=== PATIENT | female | born 1940 | race Caucasian/White ===

== ENCOUNTER 2017-01-10 23:56 | Inpatient (IN) ==
[2017-01-11] MEDS ORDERED: SOLU-MEDROL IV ONE (00:11)
[2017-01-11] MEDS ORDERED: DUONEB (A & A) INH ONE (00:11)
[2017-01-11 00:47] LABS: ALLEN TEST YES; BE 2.4 mmoll (-3.0-3.0); BLOOD TYPE ARTERIAL; DRAW SITE R RADIAL; METHB 1.6 % (0.0-1.5); MODALITY CANNULA; O2(CT) 18.7 mL/dL (15.0-23.0); PCO2(98.6) 38 mmHg (35-45); PO2(98.6) 96 mmHg (60-100); SAMPLE BLOOD; SAO2 99.3 % (95.0-100.0); THB 13.8 g/dL (11.5-17.4); pH(98.6) 7.45 (7.35-7.45)
[2017-01-11 00:58] LABS: MANUAL DIFF NEEDED? NO
[2017-01-11 01:04] LABS: BASO% 0.1 % (0.0-0.8); EOS# 0.12 X1000 (0.0-0.7); EOS% 1.2 % (0.0-10.0); HEMATOCRIT 40.7 % (37.0-47.0); HEMOGLOBIN 13.6 g/dL (12.0-16.0); IMM GRAN# 0.02 X1000 (0.0-0.04); IMM GRAN% 0.2 % (0.0-0.5); LYMPH# 1.58 X1000 (1.2-3.4); LYMPH% 15.5 % (20.5-51.1); MCH 32.2 PG (27-31); MCHC 33.4 g/dL (33-37); MCV 96.2 FL (81-99); MONO# 1.15 X1000 (0.11-0.59); MONO% 11.3 % (1.7-9.3); MPV 11.3 FL (7.4-10.4); NEUT% 71.7 % (42.2-75.2); PLT 178 X1000 (130-400); RBC 4.23 XMIL (4.2-5.4)
[2017-01-11 01:16] LABS: AGAP 15; ALKALINE PHOSPHATASE 32 U/L (32-104); BUN 10 mg/dL (8-22); CALCIUM 9.5 mg/dL (8.8-10.2); CHLORIDE 90 mmol/L (98-107); CK PROFILE 142 U/L (24-173); COSMO 265; GOT 21 U/L (10-30); GPT 16 U/L (10-36); POTASSIUM 4.2 mmol/L (3.5-5.1); SODIUM 132 mmol/L (136-145); TCO2 27 mmol/L (25-35); TOTAL BILIRUBIN 0.83 mg/dL (0.20-1.00); TOTAL PROTEIN 7.3 g/dL (6.3-8.3)
--- NOTE | 2017-01-11 01:23 | PROVIDER DOCUMENTATION ---
HPI-General Adult - General Chief Complaint: Shortness of Breath Stated Complaint: sob Time Seen by Provider: 01/11/17 01:19 Source: patient, EMS Allergies/Adverse Reactions: Patient Allergies Allergy/AdvReac Type Severity Reaction Status Date / Time acetaminophen [From [place]] AdvReac NAUSEA Verified 01/11/17 00:53 clarithromycin [From Biaxin] AdvReac NAUSEA Verified 01/11/17 00:53 hydrocodone bitartrate * AdvReac NAUSEA Verified 01/11/17 00:53 [From [place]] sertraline HCl * AdvReac NAUSEA Verified 01/11/17 00:53 [From Zoloft] Home Medications: Home Medication List Medication Instructions Recorded Confirmed Last Taken Type Alendronate Sodium 70 mg PO DIRECTED 01/11/17 01/11/17 Unknown History Calcium 500 mg PO DAILY 01/11/17 01/11/17 01/10/17 History CefUROXIME [Ceftin] 250 mg PO Q12HR 01/11/17 01/11/17 01/10/17 History Glycopyrrolate/Formoterol Fum 10.7 gm IH DAILY 01/11/17 01/11/17 01/10/17 History [Bevespi Aerosphere Inhaler] Multivitamin [Multivitamins] 1 each PO DAILY 01/11/17 01/11/17 01/11/17 History Trazodone HCl 50 mg PO HS 01/11/17 01/11/17 01/10/17 History - History of Present Illness -Gen Adult Nature of Presenting Problems: Pt. is 76 yof that presents with c/o SOB. Pt. reports she saw her PCP (Dr. Grace ) today and he changed her medication. Pt. reports later in the day she began to get SOB and states she couldn't catch her breath and began to feel hot. Pt. denies any pain or other symptoms. Location of Pain/Injury: reports: none. denies: head, face, mouth, neck, chest , upper extremity, hand(s), abdomen, back, pelvis, genitalia, lower extremity, feet, upper body, lower body, generalized Pain Radiation: reports: no radiation Quality of Pain: reports: none. denies: aching, burning, cramping, dull, fullness, indigestion, pressure, sharp, stabbing, tearing, throbbing, tightness Severity: denies: mild, moderate, severe Onset/Duration: reports: abrupt, 4-6 hours ago Timing: reports: still present. denies: improving, gone now, resolved prior to arrival, intermittent, constant, changing over time, getting worse Context/Activities at Onset: reports: none. denies: recent emotional stress, recent physical stress, recent trauma history, possible bad food, cold exposure , out of country travel Modifying Factors: improves with: nothing Associated Symptoms: reports: shortness of breath. denies: anxiety, arm pain, back/neck pain, chest pain, constipation, cough, diaphoresis, diarrhea, dizziness, EENT symptoms, fatigue, fever/chills, genitourinary problems, headaches, heartburn, joint pain, loss of appetite, malaise, muscle aches, sinus congestion/drainage, nausea, rash, seizure, sensory/motor loss, pain with inspiration, swelling/mass in abdomen, syncope, vomiting, weakness, trouble walking Similar Symptoms Previously?: No Recently seen or treated by another doctor?: No Review of Systems - Adult - REVIEW OF SYSTEMS - ADULT Constitutional: reports: see HPI. denies: chills, fever, fatique Eyes: reports: see HPI. denies: discharge, blurred vision, double vision Ears, Nose, Mouth & Throat: reports: see HPI. denies: ear discharge, ear pain, hearing loss, sinus problem, nose pain, loose teeth, mouth/dental pain, throat pain, throat swelling Cardiovascular: reports: see HPI. denies: chest pain, irregular heart rate, palpitations, syncope Respiratory: reports: see HPI, dyspnea on exertion, shortness of breath. denies : chronic cough, cough, pleurisy, wheezing Gastrointestinal: reports: see HPI. denies: abdominal pain, hematemesis, diarrhea, nausea, vomiting Genitourinary: reports: see HPI. denies: dysuria, discharge, flank pain, hesitency, urgency Musculoskeletal: reports: see HPI. denies: bone pain, back pain, joint pain, muscle aches, neck pain Integumentary: reports: see HPI. denies: hives, hair loss, itching, rash, skin thickening Neurological: reports: see HPI. denies: ataxia, headache/migraines, numbness, seizure, tremors Psychiatric: reports: see HPI. denies: anxiety, depression, emotional problems , insomnia, panic attacks, suicidal thoughts Past History - Adult - PAST MEDICAL HISTORY-ADULT Review of Records: reports: Old Records Reviewed, Nursing Assessment Review, Medications Reviewed, Social history reviewed & non-contributory. - IMMUNIZATION STATUS Childhood Immunizations: See Nurse Assessment Flu Vaccine: See Nurse Assessment - FAMILY HISTORY Family History: reviewed, not pertinent - SOCIAL HISTORY Smoking: non-smoker Physical Exam-General - PHYSICAL EXAM-ADULT Initial Vital Signs Reviewed: Yes - CONSTITUTIONAL General Appearance: alert, moderate distress, thin. negative: obese, anxious, lethargic, slow to respond, obtunded, combative - EYES Eyes: PERRL/EOMI, pink conjunctivae. negative: conjuctival exudate, scleral icterus, subconjunctival hemorrhage - HEAD, EARS, NOSE, MOUTH & THROAT HENMT: normocephalic/atraumatic, moist mucous membranes. negative: angioedema, frontal tenderness, maxillary tenderness - NECK Neck: non-tender, full range of motion, supple, normal inspection. negative: lymphadenopathy, trachial deviation, thyromegaly - RESPIRATORY Respiratory: respiratory distress, decreased breath sounds, accessory muscle use , increased rate. negative: crackles, rales, rhonchi, stridor, wheezing, plerual rub, retractions, splinting - CARDIOVASCULAR Cardiovascular: regular rate, rhythm, no edema, no JVD, no murmur, tachycardia. negative: extra beats, friction rub, irregularly irregular - GASTROINTESTINAL (ABDOMEN) Abdominal Exam: normal bowel sounds, non tender, soft. negative: distended, guarding, rigid, rebound, tenderness, hernia, mass - LYMPHATIC Lymphatic: no adenopathy. negative: axilla node tender, cervical node tenderness - MUSCULOSKELETAL Back Exam: normal inspection, no CVA tenderness, no vertebral tenderness. negative: ecchymosis, swelling, vertebral tenderness Extremity: normal range of motion, non-tender, normal inspection. negative: deformity, erythema, inflammation, swelling, tenderness Peripheral Pulses: radial (R): 2+, radial (L): 2+ - SKIN Integumentary: normal color, normal turgor, warm/dry. negative: cyanosis, diaphoresis, ecchymosis, erythema, jaundice, mottled, pallor, petechiae, purpura , rash, swelling, tenderness - NEUROLOGIC Neurologic: grossly normal, no motor/sensory deficits. negative: aphasia, facial droop, focal weakness, motor weakness, sensory deficit - PSYCHIATRIC Psych/Mental Status: normal mood/affect, normal thought content, normal thought process, oriented x 3, anxious. negative: paranoid, tearful Progress - PLAN OF CARE/RESULTS Progress/Plan/Lab Results: Vital Signs - 8 hr 01/10/17 23:58 Temperature 97.5 F L Pulse Rate 98 H Respiratory Rate 24 Blood Pressure 147/99 O2 Sat by Pulse Oximetry 98 Laboratory Results - last 24 hr 01/11/17 01/11/17 01/11/17 00:28 00:28 00:28 WBC 10.19 RBC 4.23 Hgb 13.6 Hct 40.7 MCV 96.2 MCH 32.2 H MCHC 33.4 RDW Std Deviation 13.8 Plt Count 178 MPV 11.3 H Immature Gran % (Auto) 0.2 Neut % (Auto) 71.7 Lymph % (Auto) 15.5 L Owen % (Auto) 11.3 H Eos % (Auto) 1.2 Baso % (Auto) 0.1 Immature Gran # (Auto) 0.02 Neut # (Auto) 7.31 H Lymph # (Auto) 1.58 Owen # (Auto) 1.15 H Eos # (Auto) 0.12 Baso # (Auto) 0.01 D-Dimer 0.19 Specimen Type Sample Site pH pCO2 pO2 HCO3 Base Excess Oxyhemoglobin ABG O2 Sat (Calculated) ABG O2 Saturation ABG Carboxyhemoglobin ABG Methemoglobin Dwayne Test A-a O2 Difference Total Hemoglobin Lactate Liter Flow Blood Gas Modality FiO2 % Sodium 132 L Potassium 4.2 Chloride 90 L Carbon Dioxide 27 Anion Gap 15 BUN 10 Creatinine 0.8 Estimated GFR/1.73 m2 > 60 BUN/Creatinine Ratio 13 Glucose 131 H Calculated Osmolality 265 Calcium 9.5 Total Bilirubin 0.83 AST 21 ALT 16 Alkaline Phosphatase 32 Creatine Kinase 142 Troponin T Total Protein 7.3 Albumin 4.0 Globulin 3.3 Albumin/Globulin Ratio 1.2 01/11/17 01/11/17 00:28 00:37 WBC RBC Hgb Hct MCV MCH MCHC RDW Std Deviation Plt Count MPV Immature Gran % (Auto) Neut % (Auto) Lymph % (Auto) Owen % (Auto) Eos % (Auto) Baso % (Auto) Immature Gran # (Auto) Neut # (Auto) Lymph # (Auto) Owen # (Auto) Eos # (Auto) Baso # (Auto) D-Dimer Specimen Type ARTERIAL Sample Site R RADIAL pH 7.45 pCO2 38 pO2 96 HCO3 26.8 H Base Excess 2.4 Oxyhemoglobin 95.9 ABG O2 Sat (Calculated) 18.7 ABG O2 Saturation 99.3 ABG Carboxyhemoglobin 1.80 ABG Methemoglobin 1.6 H Dwayne Test YES A-a O2 Difference 85.0 Total Hemoglobin 13.8 Lactate 0.80 Liter Flow 3.0 Blood Gas Modality CANNULA FiO2 % 32.0 Sodium Potassium Chloride Carbon Dioxide Anion Gap BUN Creatinine Estimated GFR/1.73 m2 BUN/Creatinine Ratio Glucose Calculated Osmolality Calcium Total Bilirubin AST ALT Alkaline Phosphatase Creatine Kinase Troponin T < 0.010 Total Protein Albumin Globulin Albumin/Globulin Ratio Orders Category Date Time Status Saline Loc NOW Care 01/11/17 00:12 Active CHEST-2 VIEWS [RAD] Stat Exams 01/11/17 00:11 Taken ABG [RESP] Routine Lab 01/11/17 00:37 Completed CBC WITH ELECTRONIC DIFF [HEME] Stat Lab 01/11/17 00:28 Completed CK PROFILE [SP CHEM] Stat Lab 01/11/17 00:28 Completed COMPREHENSIVE METABOLIC PANEL [CHEM] Stat Lab 01/11/17 00:28 Completed D-DIMER [CHEM] Stat Lab 01/11/17 00:28 Completed TROPONIN T Stat Lab 01/11/17 00:28 Completed Albuterol 2.5MG/Ipratrop 0.5MG [Duoneb (A & A)] Med 01/11/17 00:11 Discontinued 6 ml INH NOW ONE Methylprednisolone Sod Succ [Solu-Medrol] Med 01/11/17 00:11 Discontinued 125 mg IV NOW ONE Aerosol Treatments Routine Oth 01/11/17 00:11 Active Aerosol Treatments Stat Oth 01/11/17 00:11 Active EKG [EKG] Stat Ther 01/11/17 00:12 Ordered Discussed results and plan of care with Dr. Forman and he agrees with plan Discussed results and plan of care with patient. Patient agrees with plan and verbalizes understanding. Result Diagrams: 01/11/17 00:28 01/11/17 00:28 - XRAY 1 XRAY Study: Chest XRAY Interpretation: COPD ([place]) - CONSULTS/PCP/HOSPITALIST Notification #1 *Consult/PCP/Hospitalist*: Dr. Hyman Time Discussed: 01:51 Reason/Comments: Admission Consult Disposition: Will see in ED, Admit Departure - Departure Time of Disposition Decision: 01:42 DIAGNOSIS: COPD exacerbation Disposition: ADMITTED INPATIENT 09 Certified Medical Emergency: Emergent Condition: Stable Referrals and Follow-Ups: Angel Grace MD [Primary Care Provider] - Attestation - Physician/ CARMEN Attestation Patient care was provided by Advanced Practice Provider:: Yes Advanced Practice Provider:: Edyta Rice Advanced Practice Provider documentation review:: The Mid-level provider documentation, treatment plan and medical decision making was reviewed by the physician who agrees with all treatment and medical decision making by the MLP.
[2017-01-11] MEDS ORDERED: NS 1,000 ML IV ONE (01:44)
--- NOTE | 2017-01-11 02:30 | ED EKG INTERP ---
This chart was entered by Patricio Vogel Scribe, acting as scribe for J Carlos Forman MD. EKG Interpretation - EKG Time of EKG reading by physician:: 01:23 EKG Read and Signed by:: J Carlos Forman EKG Interpretation (*Must complete 3 of following elements*): Abnormal ( Possible L atrial enlargement; Septal infarct, age undetermined) Rate: 104 Rhythm: Sinus tachycardia This chart was documented by the indicated scribe, (Patricio Vogel Scribe) and accurately reflects the services I performed and decisions made by me, J Carlos Forman MD, as attested by the provider's signature.
[2017-01-11] MEDS ORDERED: NS NEB INH SCH (03:00)
[2017-01-11] MEDS: ROCEPHIN 1 GM/NS 1 GM/50 ML IVPB IV SCH (03:54)
[2017-01-11] MEDS: LOVENOX SUBQ SCH (03:55)
[2017-01-11] MEDS: AYR NASAL DROPS NAS SCH ×7 (04:15→21:02)
--- NOTE | 2017-01-11 06:01 | HISTORY AND PHYSICAL ---
PRIMARY CARE PHYSICIAN: Angel Grace MD REASON FOR ADMISSION: Sudden shortness of breath 8 hours ago. HISTORY OF PRESENT ILLNESS: Ms. Ellis Alatorre is a 76-year-old lady with past medical history of osteoporosis, COPD/emphysema, seasonal allergic rhinitis and chronic sinusitis. She says that about 4 weeks ago, she developed a oculonasal pruritus and sneezing spells, which is not unusual for her during springtime. Since then, she has gone on to develop nasal congestion and what she describes as sinusitis for which she has been treated with Amoxil, cefuroxime x 2 rounds, currently on her 2nd round. She denies any fever or chills. No upper dental pain. No epistaxis. Patient came today because while sitting down, she developed sudden shortness of breath. Could not take a deep inspiratory effort and then called EMS. According to EMS, when they got there, her O2 saturation was in the 70s and she was put on 100% Ventimask, brought into the ER, given steroids and breathing treatments and taken off the Ventimask and put on 2 L of nasal cannula. Her O2 saturation was 88%. The patient denies any chest pain or anginal-type symptoms. She denies any lower extremity swelling. No antecedent history of orthopnea, abdominal distention, PND. No postnasal drip. No heartburn. REVIEW OF SYSTEMS: Twelve system review was done but positive findings are noted in the HPI as per above. ALLERGIES: [place], Zoloft, codeine, Biaxin. SURGICAL HISTORY: She has had bilateral lens implants, tonsillectomy. FAMILY HISTORY: Notable for seasonal allergic rhinitis, but no asthma. No heart disease. No diabetes. SOCIAL HISTORY: She stopped smoking 8 years ago. No alcohol or illicit drug use. LAB WORK/DIAGNOSTIC DATA: Chest x-ray is clear but she has hyperinflated lungs. EKG showed questionable septal Q-waves with a lot of artifact and normal sinus rhythm. White count 7000, hemoglobin 13 and hematocrit 40, platelets 178,000 with normal differential. Sodium 132, glucose 130, troponins negative. Blood gas 7.45, pCO2 38, PO2 96 on 4 L. PHYSICAL EXAMINATION: VITAL SIGNS: Blood pressure 147/99, heart rate 95, respirations 16, temperature is 98.5 degrees. GENERAL: She is an elderly, thin woman who is in very mild respiratory distress. She is A and O x3 with normal mood and affect. HEENT: Head is normocephalic, atraumatic. Eyes, MARIALUISA EOMI. She is anicteric and not pale. ENT and oropharyngeal exam is grossly normal. No central cyanosis is noted. NECK: Supple. No JVD or carotid bruit. No thyromegaly. CHEST: Significantly decreased entry with very few wheezes. CARDIOVASCULAR: First and second heart sounds heard. No gallops, murmurs, rubs. Rhythm is regular. ABDOMEN: Slightly protuberant, soft, nontender. No mass or organomegaly. Bowel sounds normal. RECTAL: Exam is deferred at this time. EXTREMITIES: No edema, clubbing or peripheral cyanosis. She has slight fine tremors. Pulses distally in all extremities are palpable with good volume and symmetric. NEUROLOGICAL: No focal deficits. SKIN: Intact with no breakdown, lesions or erythema. MUSCULOSKELETAL: Exam is grossly normal. ASSESSMENT: 1. Acute respiratory failure secondary to chronic obstructive pulmonary disease exacerbation. 2. Chronic obstructive pulmonary disease exacerbation. 3. Seasonal allergic rhinitis. 4. Osteoporosis. 5. Chronic sinusitis. 6. Hyponatremia. PLAN: The patient will be admitted to optimize her treatment with steroids, nebulizer treatments. Due to the patient's presenting O2 saturation, it will be a good idea to evaluate her needs for home O2. The patient says that her long-acting beta 2 agonist/long-acting muscarinic agent is not as good as her anticholinergic agent she had been on in the past. Says she wants to go back to her prior agent, i.e., Tudorza. This, she will need to discuss with Dr. Grace. Start patient on saline and steroid sprays for sinusitis. Continue with IV antibiotics, IV Rocephin, although personally, I do not think this may alter the course of her sinus problems and that she may be best served to seeing an ENT specialist. cc: MD Angel Butt MD
[2017-01-11] MEDS ORDERED: FLONASE NAS SCH (09:00)
[2017-01-11] MEDS ORDERED: THERA M PLUS PO SCH (09:00)
[2017-01-11] MEDS: ATROVENT NEB INH SCH ×3 (09:04→22:27)
[2017-01-11] MEDS: XOPENEX NEB INH SCH ×3 (09:04→22:27)
--- NOTE | 2017-01-11 09:24 | Diag Imaging Result Document ---
PROCEDURE NAME: CHEST-2 VIEWS - 01/11/2017 FRONTAL AND LATERAL CHEST, TWO VIEWS: FINDINGS: The lungs are hyperexpanded. There is an increased AP diameter to the chest. The pulmonary vessels are small. The heart is not enlarged. No pleural effusions. No consolidation. There is a granuloma in the upper right lung. There are additional granulomas in the upper left lung. IMPRESSION: Severe emphysema.
[2017-01-11] MEDS: SOLU-MEDROL IV SCH ×2 (09:48→17:27)
--- NOTE | 2017-01-11 10:26 | PROGRESS NOTE ---
DATE: 01/11/2017 SUBJECTIVE: Ms. Alatorre was admitted to [facility] with an acute chronic obstructive pulmonary disease exacerbation. Clinically, she is breathing much more comfortably. She is maintaining O2 saturations of 98% on supplemental O2. She denies any chest pain, palpitations or anginal equivalents. She has a minimal nonproductive cough and mild pleuritic chest pain. Her initial chest x-ray showed hyperinflation of the lungs. She is currently being treated as an outpatient prior to admission for sinus infection. OBJECTIVE: Vital Signs: Temperature 97.9 degrees, pulse 102, respiratory rate 16, BP 144/76. CV: Tachycardic. Regular S1, S2. Lungs: Scattered end-expiratory wheezing with forced expiration. Abdomen: Soft, nontender, with active bowel sounds. ASSESSMENT AND PLAN: Acute respiratory failure secondary to acute chronic obstructive pulmonary disease exacerbation. We will continue supplemental oxygen nebulizer treatments, and I will increase Solu-Medrol to 40 mg intravenous every 8 hours. She has only been taking the Tudorza once daily, and I will increase the dosage of Tudorza to one puff twice daily. I had a long discussion with Ms. Alatorre about how to properly take maintenance medicines, and that it is important to take maintenance inhalers on a consistent basis regardless of how she is doing clinically. I will recheck a PA and lateral chest x-ray today. cc: MD Angel Hammer MD
--- NOTE | 2017-01-11 11:12 | Diag Imaging Result Document ---
PROCEDURE NAME: CHEST-2 VIEWS - 01/11/2017 FRONTAL AND LATERAL CHEST, TWO VIEWS: COMPARISON: 01/11/2017. FINDINGS: The lungs are hyperexpanded. There is an increased AP diameter to the chest. The pulmonary vessels are small. There is flattening of the diaphragm. There are no infiltrates. No pneumonia. IMPRESSION: Emphysema.
[2017-01-11] MEDS: TUDORZA PRESSAIR INHALER INH SCH ×2 (11:20→20:51)
[2017-01-11] MEDS ORDERED: SOLU-MEDROL IV SCH (13:00)
[2017-01-11] MEDS ORDERED: TUDORZA PRESSAIR INHALER INH SCH (19:30)
[2017-01-11] MEDS ORDERED: DESYREL PO SCH (21:00)
[2017-01-12] MEDS: AYR NASAL DROPS NAS SCH ×3 (01:03→05:28)
[2017-01-12] MEDS: SOLU-MEDROL IV SCH (01:03)
[2017-01-12] MEDS: ROCEPHIN 1 GM/NS 1 GM/50 ML IVPB IV SCH (03:49)
[2017-01-12] MEDS: LOVENOX SUBQ SCH (03:53)
[2017-01-12] MEDS: XOPENEX NEB INH SCH (04:00)
[2017-01-12] MEDS: ATROVENT NEB INH SCH (04:00)
[2017-01-12 06:59] LABS: HEMATOCRIT 39.5 % (37.0-47.0); HEMOGLOBIN 13.2 g/dL (12.0-16.0); LYMPH# 0.36 X1000 (1.2-3.4); LYMPH% 5.7 % (20.5-51.1); MANUAL DIFF NEEDED? YES; MCH 32.2 PG (27-31); MCHC 33.4 g/dL (33-37); MCV 96.3 FL (81-99); MONO# 0.32 X1000 (0.11-0.59); MONO% 5.1 % (1.7-9.3); MPV 11.2 FL (7.4-10.4); NEUT% 89.2 % (42.2-75.2); PLT 185 X1000 (130-400)
[2017-01-12 07:08] LABS: EOS 2 % (1-10); LYMPHS 8 % (21-51); MONO 4 % (1-9)
[2017-01-12 07:19] LABS: AGAP 14; BUN 8 mg/dL (8-22); CALCIUM 8.8 mg/dL (8.8-10.2); CHLORIDE 100 mmol/L (98-107); COSMO 276; POTASSIUM 3.9 mmol/L (3.5-5.1); SODIUM 138 mmol/L (136-145); TCO2 24 mmol/L (25-35)
[2017-01-12 08:32] VITALS: BP 119/53
[2017-01-12] MEDS ORDERED: LEVAQUIN PO SCH (09:00)
[2017-01-12] MEDS: TUDORZA PRESSAIR INHALER INH SCH (09:31)
--- NOTE | 2017-01-12 19:18 | DISCHARGE SUMMARY ---
ADMISSION DATE: 01/11/2017 DISCHARGE DATE: 01/12/2017 DISCHARGE DIAGNOSES: 1. Acute respiratory failure with hypoxia secondary to acute chronic obstructive pulmonary disease exacerbation. 2. Osteoporosis. 3. Allergic rhinitis secondary to pollen. DISCHARGE INSTRUCTIONS: 1. Return to clinic in [address] Angel Grace for transition of care visit. 2. Activity as tolerated. 3. Healthy heart diet. MEDICATIONS: Tudorza 1 inhalation twice daily, Flonase nasal spray 2 squirts to each nostril daily, Levaquin 750 mg daily for 5 days, multivitamin 1 p.o. daily, trazodone 50 mg at bedtime p.r.n. insomnia, Caltrate 600 Plus d b.i.d., multivitamin 1 p.o. daily, Fosamax 70 mg weekly. PHYSICAL EXAMINATION: General: This is a well-developed, well-nourished, 76-year-old lady in no apparent distress. Vital signs: She is afebrile. Vital signs are stable. CV: Regular rate and rhythm. Lungs: Clear to auscultation and percussion. Abdomen: Soft, nontender, with active bowel sounds. HOSPITAL COURSE: Mrs. Ellis Alatorre has a longstanding history of chronic COPD. Dr. Grace had been treating her for a recurrent sinus infection. She had increasing shortness of breath, increased work of breathing, along with a persistent cough. According to EMS her O2 saturation was in the 70s and she was placed on 100% Ventimask. On arrival to the ER her O2 saturation was 88%. The patient was admitted to [facility] where she was treated with supplemental O2, ipratropium, and Xopenex nebulizer treatments, IV Solu-Medrol, and broad-spectrum antibiotics. With aggressive pulmonary management, she made rapid improvement. We were able to wean her off the O2 and she was maintaining O2 saturations of 98 to 99% on room air. She had already been taking the Tudorza once daily and I tried to explain to her that it was a maintenance medication and that she should take it twice daily. She does have a ProAir inhaler to use on a p.r.n. basis for increasing shortness of breath. I have switched her antibiotics to oral Levaquin. We gradually increased her activity and she was walking in the halls without shortness of breath. A follow-up chest x-ray demonstrated no infiltrates. We felt that she was stable for discharge. We will continue Tudorza 1 inhalation twice daily, ProAir inhaler 2 puffs q.6 hours p.r.n. shortness of breath, and give her an additional 5 day course of Levaquin. As her lung bacon were clear and as she had been on IV steroids for less than 3 days, I did not believe that a steroid taper was indicated. Having reached maximum hospital benefit, the patient was discharged in stable condition. cc: MD Angel Hamemr MD
== END 2017-01-12 09:42 | disposition home or self-care (01) ==
LOC: SUPCPDRO → ED 23:56 → SUATTDRO 01-11 03:10 → 3N 01-11 03:10
PROVIDERS: ADMIT Internal Medicine; ATTEND Internal Medicine

== ENCOUNTER 2017-03-09 07:49 | Inpatient (IN) ==
[2017-03-09] MEDS ORDERED: DUONEB (A & A) INH ONE (08:03)
[2017-03-09] MEDS ORDERED: SOLU-MEDROL IV ONE (08:03)
--- NOTE | 2017-03-09 08:26 | Diag Imaging Result Doc PS360 ---
EXAM: CHEST-PORTABLE HISTORY: sob TECHNIQUE: Portable AP COMPARISON: 01/11/2017 FINDINGS: The lungs are well expanded. The heart is not enlarged. The vessels are not distended. No consolidation. No pleural effusions identified. IMPRESSION: Negative chest Electronically signed by Nicholas Rhoades 03/09/2017 8:24 AM
[2017-03-09 08:38] LABS: MANUAL DIFF NEEDED? NO
[2017-03-09 08:42] LABS: BASO% 0.2 % (0.0-0.8); EOS# 0.13 X1000 (0.0-0.7); EOS% 1.3 % (0.0-10.0); HEMATOCRIT 43.5 % (37.0-47.0); HEMOGLOBIN 14.3 g/dL (12.0-16.0); LYMPH# 1.04 X1000 (1.2-3.4); LYMPH% 10.8 % (20.5-51.1); MCH 32.6 PG (27-31); MCHC 32.9 g/dL (33-37); MCV 99.3 FL (81-99); MONO# 0.99 X1000 (0.11-0.59); MONO% 10.2 % (1.7-9.3); MPV 11.2 FL (7.4-10.4); NEUT% 77.5 % (42.2-75.2); PLT 165 X1000 (130-400); RBC 4.38 XMIL (4.2-5.4)
[2017-03-09 08:52] LABS: INR 0.94; PROTIME 9.8 Seconds (9.2-11.7); PTT 26.8 Seconds (22.0-36.0); URINE CULTURE NEEDED? NO; URINE MICRO REVIEW NEEDED? NO; URINE SOURCE CLEAN CATCH
[2017-03-09 08:58] LABS: ALLEN TEST NO; BE 3.2 mmoll (-3.0-3.0); BLOOD TYPE ARTERIAL; DRAW SITE R BRACHIAL; O2(CT) 23.2 mL/dL (15.0-23.0); PCO2(98.6) 50 mmHg (35-45); PO2(98.6) 128 mmHg (60-100); SAMPLE BLOOD; SAO2 99.4 % (95.0-100.0); pH(98.6) 7.38 (7.35-7.45)
[2017-03-09 08:59] LABS: MODALITY CANNULA
[2017-03-09 09:00] LABS: BILIRUBIN URINE NEGATIVE (NEGATIVE); BLOOD URINE NEGATIVE (NEGATIVE); COLOR YELLOW; GLUCOSE URINE 150 mg/dL (NEGATIVE); LEUKOCYTES URINE NEGATIVE (NEGATIVE); NITRITE URINE NEGATIVE (NEGATIVE); PH URINE 6.5; PROTEIN URINE NEGATIVE (NEGATIVE); SP GRAVITY URINE 1.009; TURBIDITY URINE CLEAR (CLEAR); UR EPITHELIAL CELLS <10 /HPF (<10); URINE BACTERIA NEGATIVE /HPF; URINE RBC <10 /HPF (<10); URINE WBC <10 /HPF (<10); UROBILINOGEN URINE NORMAL (NORMAL)
[2017-03-09 09:17] LABS: AGAP 18; ALBUMIN 3.7 g/dL (3.5-5.0); ALKALINE PHOSPHATASE 49 U/L (32-104); BUN 9 mg/dL (8-22); CALCIUM 9.1 mg/dL (8.8-10.2); CHLORIDE 94 mmol/L (98-107); CK PROFILE 42 U/L (24-173); COSMO 271; GOT 19 U/L (10-30); GPT 15 U/L (10-36); POTASSIUM 4.3 mmol/L (3.5-5.1); SODIUM 135 mmol/L (136-145); TCO2 23 mmol/L (25-35); TOTAL BILIRUBIN 0.81 mg/dL (0.20-1.00); TOTAL PROTEIN 7.1 g/dL (6.3-8.3)
[2017-03-09] MEDS ORDERED: ATIVAN IV ONE (09:33)
[2017-03-09] MEDS ORDERED: NS 1,000 ML IV ONE (10:29)
[2017-03-09] MEDS ORDERED: LOPRESSOR IV ONE (10:29)
[2017-03-09] MEDS ORDERED: NORFLEX IM ONE (10:29)
[2017-03-09] MEDS ORDERED: XOPENEX NEB INH ONE (11:49)
[2017-03-09] MEDS ORDERED: NS NEB INH SCH ×2 (12:00→15:31)
--- NOTE | 2017-03-09 13:50 | PROVIDER DOCUMENTATION ---
This chart was entered by Liza Wilkes Scribe, acting as scribe for Shane Palomo MD. HPI-Respiratory General - General Chief Complaint: Shortness of Breath Stated Complaint: sob Time Seen by Provider: 03/09/17 08:02 Source: patient Allergies/Adverse Reactions: Patient Allergies Allergy/AdvReac Type Severity Reaction Status Date / Time acetaminophen [From [place]] AdvReac NAUSEA Verified 01/11/17 00:53 clarithromycin [From Biaxin] AdvReac NAUSEA Verified 01/11/17 00:53 hydrocodone bitartrate * AdvReac NAUSEA Verified 01/11/17 00:53 [From [place]] sertraline HCl * AdvReac NAUSEA Verified 01/11/17 00:53 [From Zoloft] Home Medications: Home Medication List Medication Instructions Recorded Confirmed Last Taken Type Alendronate Sodium 70 mg PO DIRECTED 01/11/17 01/11/17 Unknown History Calcium 500 mg PO DAILY 01/11/17 01/11/17 01/10/17 History Multivitamin [Multivitamins] 1 each PO DAILY 01/11/17 01/11/17 01/11/17 History Trazodone HCl 50 mg PO HS 01/11/17 01/11/17 01/10/17 History Aclidinium [place] Inhaler 1 puff INH RTBID inhaler 01/12/17 Unknown Rx [Tudorza Pressair Inhaler] Fluticasone 50 Mcg Nasal [place] 2 spray MACK DAILY bottle 01/12/17 Unknown Rx [Flonase] Levofloxacin [Levaquin] 750 mg PO DAILY #5 tablet 01/12/17 Unknown Rx Multivit,Fe,Ca,FA & Min [Thera M 1 each PO DAILY tablet 01/12/17 Unknown Rx Plus] - History of Present Illness-Resp Nature of Presenting Problem: 76 yo F presents to the ER with complaint of feeling like she couldn't breathe this morning. Pt has a hx of anxiety, states that she felt like she couldn't breathe and it caused her to have a panic attack. Has a hx of COPD and emphysema. Denies fever, n/v or CP, states she has a mild nonproductive cough. Onset/Duration: reports: this morning Current Respiratory Medication Therapy: Initiated none Associated Symptoms: reports: cough, shortness of breath. denies: chest pain/ soreness, fever/chills, flu-like symptoms, wheezing Review of Systems - Adult - REVIEW OF SYSTEMS - ADULT Constitutional: denies: chills, fever Eyes: reports: no symptoms reported Ears, Nose, Mouth & Throat: reports: no symptoms reported Cardiovascular: denies: chest pain, palpitations Respiratory: reports: shortness of breath. denies: cough, wheezing Gastrointestinal: denies: diarrhea, nausea, vomiting Genitourinary: reports: no symptoms reported Musculoskeletal: reports: no symptoms reported Integumentary: reports: no symptoms reported Neurological: reports: no symptoms reported Psychiatric: reports: no symptoms reported Endocrine: reports: no symptoms reported Hematologic/Lymphatic: reports: no symptoms reported Allergic/Immunologic: reports: no symptoms reported All Other Systems: Reviewed and Negative Past History - Adult - PAST MEDICAL HISTORY-ADULT Review of Records: reports: Nursing Assessment Review, Medications Reviewed Respiratory: reports: COPD Psychiatric: reports: anxiety - PRIOR SURGERIES/PROCEDURES Surgical/Procedure History: reports: tonsillectomy, other (sinus, lens implant) - IMMUNIZATION STATUS Childhood Immunizations: See Nurse Assessment Flu Vaccine: See Nurse Assessment - FAMILY HISTORY Family History: reviewed, not pertinent Physical Exam-General - PHYSICAL EXAM-ADULT Initial Vital Signs Reviewed: Yes - CONSTITUTIONAL General Appearance: alert, anxious - EYES Eyes: PERRL/EOMI, pink conjunctivae - HEAD, EARS, NOSE, MOUTH & THROAT HENMT: normocephalic/atraumatic, normal ENT inspection - NECK Neck: supple, normal inspection - RESPIRATORY Respiratory: no respiratory distress, no accessory muscle use - CARDIOVASCULAR Cardiovascular: normal peripheral pulses, tachycardia - GASTROINTESTINAL (ABDOMEN) Abdominal Exam: normal bowel sounds, non tender, soft - MUSCULOSKELETAL Back Exam: no CVA tenderness, no vertebral tenderness Extremity: normal gait, normal inspection - SKIN Integumentary: normal color, warm/dry - NEUROLOGIC Neurologic: grossly normal, no motor/sensory deficits - PSYCHIATRIC Psych/Mental Status: normal mood/affect, normal thought content, normal thought process, oriented x 3 Progress - PLAN OF CARE/RESULTS Progress/Plan/Lab Results: Vital Signs - 8 hr 03/09/17 07:55 03/09/17 08:22 03/09/17 10:42 Temperature 97.7 F Pulse Rate 128 H 122 H 126 H Respiratory Rate 30 H 18 26 H Blood Pressure 128/82 140/101 O2 Sat by Pulse Oximetry 95 100 95 03/09/17 11:15 03/09/17 12:06 03/09/17 12:40 Temperature Pulse Rate 92 H 98 H 120 H Respiratory Rate 20 20 20 Blood Pressure 127/72 O2 Sat by Pulse Oximetry 99 89 L 03/09/17 13:25 Temperature Pulse Rate 120 H Respiratory Rate 20 Blood Pressure 157/70 O2 Sat by Pulse Oximetry 93 L Laboratory Results - last 24 hr 03/09/17 03/09/17 03/09/17 08:03 08:27 08:27 WBC 9.66 RBC 4.38 Hgb 14.3 Hct 43.5 MCV 99.3 H MCH 32.6 H MCHC 32.9 L RDW Std Deviation 14.0 Plt Count 165 MPV 11.2 H Immature Gran % (Auto) 0.0 Neut % (Auto) 77.5 H Lymph % (Auto) 10.8 L [place] % (Auto) 10.2 H Eos % (Auto) 1.3 Baso % (Auto) 0.2 Immature Gran # (Auto) 0.00 Neut # (Auto) 7.48 H Lymph # (Auto) 1.04 L [place] # (Auto) 0.99 H Eos # (Auto) 0.13 Baso # (Auto) 0.02 PT INR PTT (Actin FS) D-Dimer Specimen Type ARTERIAL Sample Site R BRACHIAL pH 7.38 pCO2 50 H pO2 128 H HCO3 27.4 H Base Excess 3.2 H Oxyhemoglobin 96.4 ABG O2 Sat (Calculated) 23.2 H ABG O2 Saturation 99.4 ABG Carboxyhemoglobin 2.10 ABG Methemoglobin 1.0 Dwayne Test NO A-a O2 Difference 66.0 Total Hemoglobin 17.0 Lactate 2.00 Liter Flow 4.0 Blood Gas Modality CAN[place]ULA FiO2 % 36.0 Sodium 135 L Potassium 4.3 Chloride 94 L Carbon Dioxide 23 L Anion Gap 18 BUN 9 Creatinine 0.7 Estimated GFR/1.73 m2 > 60 BUN/Creatinine Ratio 13 Glucose 136 H Calculated Osmolality 271 Calcium 9.1 Magnesium 2.0 Total Bilirubin 0.81 AST 19 ALT 15 Alkaline Phosphatase 49 Creatine Kinase 42 Troponin T [id number]-Klxwabwybwc Pept Total Protein 7.1 Albumin 3.7 Globulin 3.4 Albumin/Globulin Ratio 1.1 Urine Source Urine Color Urine Turbidity Urine pH Ur Specific [place] Urine Protein Ur Glucose (Stick) Ur Ketones (Stick) Urine Blood Urine Nitrite Urine Bilirubin Urobilinogen Dipstick Urine Leukocytes Urine WBC (Auto) Urine RBC (Auto) U Epithel Cells (Auto) Urine Bacteria (Auto) 03/09/17 03/09/17 03/09/17 08:27 08:27 08:27 WBC RBC Hgb Hct MCV MCH MCHC RDW Std Deviation Plt Count MPV Immature Gran % (Auto) Neut % (Auto) Lymph % (Auto) [place] % (Auto) Eos % (Auto) Baso % (Auto) Immature Gran # (Auto) Neut # (Auto) Lymph # (Auto) [place] # (Auto) Eos # (Auto) Baso # (Auto) PT 9.8 INR 0.94 PTT (Actin FS) 26.8 D-Dimer 0.23 Specimen Type Sample Site pH pCO2 pO2 HCO3 Base Excess Oxyhemoglobin ABG O2 Sat (Calculated) ABG O2 Saturation ABG Carboxyhemoglobin ABG Methemoglobin Dwayne Test A-a O2 Difference Total Hemoglobin Lactate Liter Flow Blood Gas Modality FiO2 % Sodium Potassium Chloride Carbon Dioxide Anion Gap BUN Creatinine Estimated GFR/1.73 m2 BUN/Creatinine Ratio Glucose Calculated Osmolality Calcium Magnesium Total Bilirubin AST ALT Alkaline Phosphatase Creatine Kinase Troponin T Fgv-Q-Vplazjkntkn Pept 43 Total Protein Albumin Globulin Albumin/Globulin Ratio Urine Source Urine Color Urine Turbidity Urine pH Ur Specific [place] Urine Protein Ur Glucose (Stick) Ur Ketones (Stick) Urine Blood Urine Nitrite Urine Bilirubin Urobilinogen Dipstick Urine Leukocytes Urine WBC (Auto) Urine RBC (Auto) U Epithel Cells (Auto) Urine Bacteria (Auto) 03/09/17 03/09/17 03/09/17 08:27 08:27 12:06 WBC RBC Hgb Hct MCV MCH MCHC RDW Std Deviation Plt Count MPV Immature Gran % (Auto) Neut % (Auto) Lymph % (Auto) [place] % (Auto) Eos % (Auto) Baso % (Auto) Immature Gran # (Auto) Neut # (Auto) Lymph # (Auto) [place] # (Auto) Eos # (Auto) Baso # (Auto) PT INR PTT (Actin FS) D-Dimer Specimen Type Sample Site pH pCO2 pO2 HCO3 Base Excess Oxyhemoglobin ABG O2 Sat (Calculated) ABG O2 Saturation ABG Carboxyhemoglobin ABG Methemoglobin Dwayne Test A-a O2 Difference Total Hemoglobin Lactate Liter Flow Blood Gas Modality FiO2 % Sodium Potassium Chloride Carbon Dioxide Anion Gap BUN Creatinine Estimated GFR/1.73 m2 BUN/Creatinine Ratio Glucose Calculated Osmolality Calcium Magnesium Total Bilirubin AST ALT Alkaline Phosphatase Creatine Kinase 33 Troponin T < 0.010 Jgf-G-Jqgdlkkzxef Pept Total Protein Albumin Globulin Albumin/Globulin Ratio Urine Source CLEAN CATCH Urine Color YELLOW Urine Turbidity CLEAR Urine pH 6.5 Ur Specific [place] 1.009 Urine Protein NEGATIVE Ur Glucose (Stick) 150 A Ur Ketones (Stick) NEGATIVE Urine Blood NEGATIVE Urine Nitrite NEGATIVE Urine Bilirubin NEGATIVE Urobilinogen Dipstick NORMAL Urine Leukocytes NEGATIVE Urine WBC (Auto) <10 Urine RBC (Auto) <10 U Epithel Cells (Auto) <10 Urine Bacteria (Auto) NEGATIVE 03/09/17 12:06 WBC RBC Hgb Hct MCV MCH MCHC RDW Std Deviation Plt Count MPV Immature Gran % (Auto) Neut % (Auto) Lymph % (Auto) [place] % (Auto) Eos % (Auto) Baso % (Auto) Immature Gran # (Auto) Neut # (Auto) Lymph # (Auto) [place] # (Auto) Eos # (Auto) Baso # (Auto) PT INR PTT (Actin FS) D-Dimer Specimen Type Sample Site pH pCO2 pO2 HCO3 Base Excess Oxyhemoglobin ABG O2 Sat (Calculated) ABG O2 Saturation ABG Carboxyhemoglobin ABG Methemoglobin [place] Test A-a O2 Difference Total Hemoglobin Lactate Liter Flow Blood Gas Modality FiO2 % Sodium Potassium Chloride Carbon Dioxide Anion Gap BUN Creatinine Estimated GFR/1.73 m2 BUN/Creatinine Ratio Glucose Calculated Osmolality Calcium Magnesium Total Bilirubin AST ALT Alkaline Phosphatase Creatine Kinase Troponin T < 0.010 Jxb-C-Rqqvvslhzwu Pept Total Protein Albumin Globulin Albumin/Globulin Ratio Urine Source Urine Color Urine Turbidity Urine pH Ur Specific [place] Urine Protein Ur Glucose (Stick) Ur Ketones (Stick) Urine Blood Urine Nitrite Urine Bilirubin Urobilinogen Dipstick Urine Leukocytes Urine WBC (Auto) Urine RBC (Auto) U Epithel Cells (Auto) Urine Bacteria (Auto) Orders Category Date Time Status Cardiac Monitoring DIRECTED Care 03/09/17 08:03 Active Oxygen Therapy- ED Nursing DIRECTED Care 03/09/17 08:03 Active Saline Loc NOW Care 03/09/17 08:03 Active CHEST-PORTABLE [RAD] Stat Exams 03/09/17 08:03 Completed ABG [RESP] Routine Lab 03/09/17 08:03 Completed BLOOD CULTURE [BLDCUL] Stat Lab 03/09/17 08:27 Results CBC WITH ELECTRONIC DIFF [HEME] Stat Lab 03/09/17 08:27 Completed CK PROFILE [SP CHEM] Stat Lab 03/09/17 08:27 Completed CK PROFILE [SP CHEM] Stat Lab 03/09/17 12:06 Completed COMPREHENSIVE METABOLIC PANEL [CHEM] Stat Lab 03/09/17 08:27 Completed D-DIMER [CHEM] Stat Lab 03/09/17 08:27 Completed MAGNESIUM [CHEM] Stat Lab 03/09/17 08:27 Completed PRO B-NATRIURETIC PEPTIDE Stat Lab 03/09/17 08:27 Completed PROTIME WITH INR [COAG] Stat Lab 03/09/17 08:27 Completed PTT [COAG] Stat Lab 03/09/17 08:27 Completed TROPONIN T Stat Lab 03/09/17 08:27 Completed TROPONIN T Stat Lab 03/09/17 12:06 Completed UA NIMS W/REFLEX CULT [URINALYSIS] Stat Lab 03/09/17 08:27 Completed 0.9% Sodium Chloride Inj [Ns] 1,000 ml Med 03/09/17 10:29 Discontinued IV 999 mls/hr Albuterol 2.5MG/Ipratrop 0.5MG [Duoneb (A & A)] Med 03/09/17 08:03 Discontinued 3 ml INH NOW ONE Levalbuterol Neb [Xopenex Neb] Med 03/09/17 11:49 Discontinued 1.25 mg INH NOW ONE Lorazepam [Ativan] Med 03/09/17 09:33 Discontinued 1 mg IV NOW ONE Methylprednisolone Sod Succ [Solu-Medrol] Med 03/09/17 08:03 Discontinued 125 mg IV NOW ONE Metoprolol [Lopressor] Med 03/09/17 10:29 Discontinued 5 mg IV NOW ONE Orphenadrine [Norflex] Med 03/09/17 10:29 Discontinued 60 mg IM NOW ONE Sodium Chloride 0.9% Neb [Ns Neb] Med 03/09/17 12:00 Active 5 ml INH DIRECTED Aerosol Treatments Routine Oth 03/09/17 08:06 Completed Aerosol Treatments Routine Oth 03/09/17 11:49 Completed Aerosol Treatments Stat Oth 03/09/17 08:06 Completed Aerosol Treatments Stat Oth 03/09/17 11:49 Completed EKG [EKG] Stat Ther 03/09/17 08:03 Ordered EKG [EKG] Stat Ther 03/09/17 10:29 Ordered Result Diagrams: 03/09/17 08:27 03/09/17 08:27 - REASSESSMENT Reassessment #1 Time Reassessed: 11:50 Status: improving (Pt is doing better and her leg cramping improved. Pt requested another breating tx and then seh wants to go home. 2nd set Trop ordered.) Reassessment #2 Time Reassessed: 13:45 Status: unchanged (Pt does not use home O2. Pt's SO2 drops to 88% on RA after berathing treatment and taking off O2. Pt will be admitted.) - EKG 1 Time of EKG reading by physician:: 08:00 EKG Read and Signed by:: Shane Palomo EKG Interpretation (*Must complete 3 of following elements*): Abnormal Rate: 123 Rhythm: sinus tach [place]: right QRS: normal [place] Interval: normal ST Wave: normal Comments: possible L atrial enlargement, inferior infarct, anterior infarct - XRAY 1 XRAY Study: Chest Impression: Normal (negative, per radiologist) - CONSULTS/PCP/HOSPITALIST Notification #1 *Consult/PCP/Hospitalist*: Dr. Portillo Time Discussed: 13:44 Consult Disposition: Admit Departure - Departure Date of Disposition Decision: 03/09/17 Time of Disposition Decision: 13:44 DIAGNOSIS: Hypoxia, SOB (shortness of breath) Disposition: ADMITTED INPATIENT 09 Certified Medical Emergency: Emergent Condition: Stable Referrals and Follow-Ups: Angel Grace MD [Primary Care Provider] - - Critical Care Note This patient required my direct & personal management of CC.: No This chart was documented by the indicated scribe, (Liza Wilkes Scribe) and accurately reflects the services I performed and decisions made by me, Shane Palomo MD, as attested by the provider's signature.
[2017-03-09] MEDS ORDERED: AUGMENTIN PO ONE (14:58)
[2017-03-09] MEDS ORDERED: NS 1,000 ML IV SCH (15:31)
[2017-03-09] MEDS ORDERED: ZOFRAN IV PRN (15:31)
[2017-03-09] MEDS: ATROVENT NEB INH SCH ×3 (15:58→23:30)
[2017-03-09] MEDS: XOPENEX NEB INH SCH ×3 (15:58→23:30)
[2017-03-09] MEDS: LOVENOX SUBQ SCH (16:09)
--- NOTE | 2017-03-09 18:05 | HISTORY AND PHYSICAL ---
PRIMARY CARE PHYSICIAN: Angel Grace MD CHIEF COMPLAINT: Shortness of breath. HISTORY OF PRESENT ILLNESS: This 76-year-old white female with past medical history significant for osteoporosis, chronic obstructive pulmonary disease, seasonal allergies, chronic sinusitis, insomnia, and anxiety, who presents for evaluation of above-mentioned symptoms. Current history of present illness began . At that time, patient developed increasing shortness of breath and an associated panic attack. The patient, since that time, states she has intermittently been treated with steroids, antibiotics, and bronchodilators. Unfortunately, she has not achieved a full recovery since then. Dr. Grace has attempted multiple medication changes with only modest success. Most recent history of present illness began over the last several days. The patient states she has developed increasing shortness of breath. Interestingly, the patient notes increasing shortness of breath to have been precipitated by extreme anxiety in the setting of her 's planning to go on a mission trip. The patient states this morning she awoke with profound shortness of breath and wheezing. Because of her progressive symptoms, she presented to the emergency department for further evaluation and management. Upon arrival, a full evaluation was pursued. Patient was diagnosed with an acute exacerbation of chronic obstructive pulmonary disease. She was provided steroids, bronchodilators, and oxygen therapy. Despite aggressive measures, she continued to experience hypoxia with discontinuing oxygen therapy. The patient will be admitted to the hospital for full evaluation and management of this condition. Of note, patient's symptoms include cough, congestion, wheezing, and shortness of breath. She has had no significant sick contacts. She denies fevers or chills at the present time. PAST MEDICAL HISTORY: 1. Osteoporosis. 2. COPD. 3. Seasonal allergies. 4. Chronic sinusitis. 5. Anxiety. 6. Osteoarthritis. 7. Insomnia. CURRENT MEDICATIONS: 1. Tudorza one inhalation twice daily. 2. Q-Mejia one inhalation twice daily. 3. Tylenol 325 mg three times daily. 4. Flonase 2 sprays each nostril daily. 5. Multivitamin daily. 6. Trazodone 50 mg at bedtime. 7. Calcium plus vitamin D twice daily. 8. Multiple vitamin daily. 9. Fosamax 70 mg weekly. 10. Ativan 0.5 mg twice daily. 11. Sudafed as needed. 12. ProAir HFA as needed. ALLERGIES: Patient states she is allergic to [place], Zoloft, codeine, Biaxin, levofloxacin, and cefuroxime. SOCIAL HISTORY: Patient smoked 1 pack per day for 34 years. She stopped approximately 9 years ago. She denies alcohol or illicit drug use. She is retired from [employer]. FAMILY HISTORY: Patient's mother passed at age 96 secondary to complications of dementia. Patient's father passed in his 80s secondary to complications of lung cancer. REVIEW OF SYSTEMS: A 12 point review of systems was performed. Pertinent positives and negatives as noted in history present illness. PHYSICAL EXAMINATION: VITAL SIGNS: Temperature 97.7 degrees, heart rate 102, respirations 20, blood pressure is 151/78. GENERAL: Thin with mild respiratory compromise. HEENT: Normocephalic atraumatic. Pupils equal, round, reactive to light. Extraocular muscles intact. Sclerae anicteric. [place] conjunctivae. Oral and nasopharynx clear without exudate. NECK: Supple. No lymphadenopathy. No thyromegaly. No bruits auscultated. CARDIOVASCULAR: Slightly tachycardic regular rhythm. No significant murmurs, rubs, or gallops. PULMONARY: Distant breath sounds. Compromised air movement. ABDOMEN: Soft, nontender, nondistended. Positive bowel sounds. EXTREMITIES: Moves all extremities well. No significant clubbing, cyanosis, or edema. NEUROLOGIC EXAMINATION: Cranial 2 through 12 grossly intact. Motor and sensory grossly intact. PSYCHOLOGIC EXAMINATION: Appropriate. LABORATORY DATA: White blood cell count 9.66, hemoglobin 14.3, hematocrit 43.5 , platelet count a 165,000. PT 9.8, PTT 26.8, INR 0.9. D-dimer 0.23. PH 7.38, pCO2 50, pO2 128, bicarbonate 27.4. Sodium 135, potassium 4.3, chloride 94, bicarb 23, BUN 9, creatinine 0.7, glucose 136. Calcium 9.1, magnesium 2.0. Total protein. 7.1, albumin 3.7, alkaline phosphatase showed a total bilirubin of 0.81, alkaline phosphatase 49. AST 19, ALT 15, CK total 33. Troponin less than 0.010. Urinalysis returned negative. Chest x-ray reveals no acute disease. ASSESSMENT AND PLAN: A 76-year-old white female with past medical history as noted, presents for evaluation of shortness of breath with associated hypoxia. At this point, patient appears to have acute respiratory failure associated with a chronic obstructive pulmonary disease. Unfortunately, underlying anxiety is exacerbating her condition. Patient will be admitted to the hospital for full evaluation and management of each of these conditions. 1. Admit to General Medicine. 2. Acute respiratory failure associated with a chronic obstructive pulmonary disease exacerbation- as described above, patient's symptoms persist despite aggressive measures in the ER. We will start patient on Solu-Medrol and bronchodilators. We will avoid albuterol secondary to her tachycardia. We will start Augmentin as she has had difficulty tolerating cefuroxime and levofloxacin in the past. We will check blood and sputum cultures. We will treat patient's hypoxia as below. 3. Hypoxia-question is raised whether patient is progressing to oxygen- dependent chronic obstructive pulmonary disease. We will aggressively manage her condition as above. We will treat patient with supplemental oxygen for now. We will follow this closely as well. 4. Profound anxiety-as above, unfortunately this is exacerbating her condition. This primarily revolves around her 's planned mission trip in the near future. For now, we will increase Ativan to 3 times daily. We will defer starting an SSRI to Dr. Grace. 5. Elevated blood pressure without the diagnosis of hypertension- the patient's blood pressure is significantly elevated today in the ER. I suspect this may be reactive. We will follow patient's blood pressure while hospitalized. We will determine if medical intervention is appropriate. 6. Allergic rhinitis-we will continue patient on her home regimen. 7. Insomnia-we will continue trazodone therapy. We will practice aspiration precautions. 8. Fluid electrolytes nutrition. We will monitor electrolytes. Normal saline at KVO. Regular diet. PROPHYLAXIS: The patient will be placed on subcu Lovenox. cc: Luis Plaza MD MTDD
[2017-03-09] MEDS: ATIVAN PO SCH (19:35)
[2017-03-09] MEDS: TUDORZA PRESSAIR INHALER INH SCH (19:45)
[2017-03-09] MEDS: QVAR 80 MICROGM INHALER INH SCH (19:45)
[2017-03-09] MEDS: DESYREL PO SCH (22:04)
[2017-03-09] MEDS: SOLU-MEDROL IV SCH (22:05)
[2017-03-09] MEDS: CALTRATE 600 PO SCH (22:05)
[2017-03-09] MEDS: AUGMENTIN PO SCH (22:05)
[2017-03-10] MEDS: ATROVENT NEB INH SCH ×2 (03:35→08:02)
[2017-03-10] MEDS: XOPENEX NEB INH SCH ×2 (03:35→08:02)
[2017-03-10] MEDS: SOLU-MEDROL IV SCH ×3 (05:16→21:08)
[2017-03-10 06:11] LABS: HEMATOCRIT 39.3 % (37.0-47.0); HEMOGLOBIN 12.7 g/dL (12.0-16.0); LYMPH# 0.41 X1000 (1.2-3.4); LYMPH% 5.2 % (20.5-51.1); MANUAL DIFF NEEDED? YES; MCH 32.2 PG (27-31); MCHC 32.3 g/dL (33-37); MCV 99.5 FL (81-99); MONO# 0.41 X1000 (0.11-0.59); MONO% 5.2 % (1.7-9.3); MPV 11.3 FL (7.4-10.4); NEUT% 89.6 % (42.2-75.2); PLT 176 X1000 (130-400); RBC 3.95 XMIL (4.2-5.4)
[2017-03-10 06:33] LABS: AGAP 15; ALBUMIN 3.8 g/dL (3.5-5.0); ALKALINE PHOSPHATASE 49 U/L (32-104); BUN 7 mg/dL (8-22); CALCIUM 9.3 mg/dL (8.8-10.2); CHLORIDE 98 mmol/L (98-107); COSMO 279; GOT 20 U/L (10-30); GPT 18 U/L (10-36); POTASSIUM 3.9 mmol/L (3.5-5.1); SODIUM 139 mmol/L (136-145); TCO2 26 mmol/L (25-35); TOTAL BILIRUBIN 0.43 mg/dL (0.20-1.00); TOTAL PROTEIN 6.3 g/dL (6.3-8.3)
[2017-03-10 06:37] LABS: LYMPHS 8 % (21-51); MONO 2 % (1-9)
--- NOTE | 2017-03-10 07:05 | EKG Report ---
Test Performed on : 03/09/2017 10:36:59 AM Test Reason : re-ordered Blood Pressure : / mmHG Vent. Rate : 140 BPM Atrial Rate : 021 BPM P-R Int : 226 ms QRS Dur : 020 ms QT Int : 358 ms P-R-T Axes : 243 000 224 degrees QTc Int : 546 ms Undetermined rhythm Indeterminate axis Pulmonary disease pattern ST \T\ Marked T wave abnormality, consider inferior ischemia ST \T\ Marked T wave abnormality, consider anterolateral ischemia Abnormal ECG When compared with ECG of 09-MAR-2017 08:00, (Unconfirmed) Current undetermined rhythm precludes rhythm comparison, needs review Questionable change in QRS duration Unconfirmed Result
--- NOTE | 2017-03-10 07:05 | EKG Report ---
Test Performed on : 03/09/2017 08:00:14 AM Test Reason : re-ordered Blood Pressure : / mmHG Vent. Rate : 123 BPM Atrial Rate : 123 BPM P-R Int : 158 ms QRS Dur : 074 ms QT Int : 306 ms P-R-T Axes : 075 092 060 degrees QTc Int : 438 ms Sinus tachycardia. Possible Left atrial enlargement Rightward axis Inferior infarct , age undetermined Anterior infarct (cited on or before 11-JAN-2017) Abnormal ECG When compared with ECG of 11-JAN-2017 01:23, Inferior infarct is now present Questionable change in initial forces of Anteroseptal leads Unconfirmed Result
[2017-03-10] MEDS: TUDORZA PRESSAIR INHALER INH SCH ×2 (08:02→19:50)
[2017-03-10] MEDS: QVAR 80 MICROGM INHALER INH SCH ×2 (08:02→19:50)
[2017-03-10] MEDS: CALTRATE 600 PO SCH ×2 (08:46→21:08)
[2017-03-10] MEDS: ATIVAN PO SCH (08:46)
[2017-03-10] MEDS: THERA M PLUS PO SCH (08:46)
[2017-03-10] MEDS: FLONASE NAS SCH (08:46)
[2017-03-10] MEDS: AUGMENTIN PO SCH ×2 (08:46→21:08)
[2017-03-10] MEDS: ALBUTEROL NEB INH SCH ×3 (11:54→22:00)
[2017-03-10] MEDS: LEXAPRO PO SCH (12:40)
[2017-03-10] MEDS: TRANXENE PO SCH ×2 (12:43→16:13)
[2017-03-10] MEDS: LOVENOX SUBQ SCH (16:58)
[2017-03-10] MEDS: DESYREL PO SCH (21:08)
--- NOTE | 2017-03-10 23:46 | CONSULTATION ---
DATE OF CONSULTATION: 03/10/2017 REQUESTING PHYSICIAN: Dr. Angel Grace. REASON FOR CONSULTATION: COPD and dyspnea. HISTORY OF PRESENT ILLNESS: Ms. Alatorre is a 76-year-old white female with a 50 pack year history for tobacco (nonsmoker for 8-1/2 years) who has had approximately 4 episodes of severe dyspnea over the last 2 years. The patient had an episode in December 2005 which improved with steroids, inhalers and antibiotics. She had a another episode consistent with a COPD exacerbation in June 2016 which rapidly cleared. She has had more shortness of breath this year which has not significantly improved despite courses of steroids and antibiotics. She has had a long history of anxiety and panic and has been initiated on trazodone and anxiolytics. Patient developed increasing shortness of breath on the day of admission. She has had increased anxiety/stress associated with her 's plans to go on a mission trip and with another employee who is currently out sick. She did take an Ativan prior to coming to the hospital with some improvement in her symptoms. She has used her ProAir without definite improvement. The patient has no active exercise program. She has tried Bevespi which was not as beneficial as her Tudorza. She denies using Brio, Advair, or Symbicort. PAST MEDICAL HISTORY: 1. COPD as per above. 2. Osteoporosis. 3. Chronic anxiety. 4. Recurrent sinusitis/chronic sinusitis. 5. Osteoarthritis. 6. Insomnia. SOCIAL HISTORY: Prior tobacco use as per HPI. FAMILY HISTORY: Notable for dementia and lung cancer. REVIEW OF SYSTEMS: As noted in the HPI. PHYSICAL EXAMINATION: General: Reveals a well-developed, well-nourished, white female, resting comfortably and in no distress. Vital Signs: BP 141/60, heart rate approximately 112, respiratory rate 20, oxygen saturation 95%. HEENT: Pupils are equal and reactive. Oropharynx is clear. Neck: Supple. Chest: Reveals prolonged expiratory phase without significant wheezing. Cardiac Exam: Increased rate. Regular rhythm. Abdomen: Soft and without hepatosplenomegaly. Extremities: Without edema. LABORATORIES: Chest x-ray reveals good expansion. Flattening of the diaphragms. Increased AP diameter. Arterial blood gas on 4 L per nasal cannula pH 7.38, pCO2 of 50, PO2 of 128. IMPRESSION: A 76-year-old with chronic obstructive pulmonary disease. The patient has CO2 retention and therefore has significant emphysema and chronic hypercapnic respiratory failure. Her course is complicated by underlying anxiety. Her regimen has been evaluated and should be acceptable. She might benefit from a long- acting beta agonist but this may also exacerbate her anxiety. She currently has no exercise regimen. Review of her caffeine intake indicates she drinks coffee in the morning and then multiple Mountain Dews throughout the day. This may also be contributing to her anxiety/tachycardia. RECOMMENDATIONS: 1. Obtain pulmonary function studies to evaluate the degree of obstruction and possible reversibility following bronchodilators. 2. Continue current bronchodilator regimen. 3. Recommend patient discontinue caffeine. 4. Patient will need an overnight oximetry if she is discharged without oxygen. 5. Outpatient pulmonary rehab will be recommended and can be arranged after followup in my office. cc: MD Luis Marquez MD MTDD
[2017-03-11] MEDS: ALBUTEROL NEB INH SCH ×4 (03:40→20:37)
[2017-03-11] MEDS ORDERED: ALBUTEROL NEB ONE (07:51)
[2017-03-11] MEDS: TUDORZA PRESSAIR INHALER INH SCH ×2 (07:56→19:20)
[2017-03-11] MEDS: QVAR 80 MICROGM INHALER INH SCH (07:57)
[2017-03-11] MEDS: THERA M PLUS PO SCH (08:46)
[2017-03-11] MEDS: CALTRATE 600 PO SCH ×2 (08:46→20:18)
[2017-03-11] MEDS: TRANXENE PO SCH ×3 (08:46→16:51)
[2017-03-11] MEDS: SOLU-MEDROL IV SCH (08:46)
[2017-03-11] MEDS: LEXAPRO PO SCH (08:46)
[2017-03-11] MEDS: FLONASE NAS SCH (09:46)
[2017-03-11] MEDS: AUGMENTIN PO SCH ×2 (09:53→20:18)
[2017-03-11] MEDS: FOLIC ACID PO SCH (10:15)
[2017-03-11] MEDS: PREDNISONE PO SCH (15:00)
[2017-03-11] MEDS: LOVENOX SUBQ SCH (15:00)
[2017-03-11] MEDS: TYLENOL PO PRN (15:22)
[2017-03-11] MEDS ORDERED: SYMBICORT 160/4.5 MICROGM INHALER INH SCH (19:30)
[2017-03-11] MEDS: DESYREL PO SCH (20:20)
[2017-03-12] MEDS ORDERED: ALBUTEROL NEB ONE (02:54)
[2017-03-12] MEDS: ALBUTEROL NEB INH SCH ×2 (03:54→07:16)
[2017-03-12] MEDS: TYLENOL PO PRN ×2 (04:14→12:00)
[2017-03-12] MEDS: PREDNISONE PO SCH (05:38)
[2017-03-12] MEDS: TUDORZA PRESSAIR INHALER INH SCH (07:16)
[2017-03-12 07:57] VITALS: BP 154/68
[2017-03-12] MEDS: CALTRATE 600 PO SCH (08:24)
[2017-03-12] MEDS: LEXAPRO PO SCH (08:24)
[2017-03-12] MEDS: THERA M PLUS PO SCH (08:25)
[2017-03-12] MEDS: AUGMENTIN PO SCH (08:25)
[2017-03-12] MEDS: TRANXENE PO SCH ×2 (08:25→12:00)
[2017-03-12] MEDS: FOLIC ACID PO SCH (08:25)
[2017-03-12] MEDS: FLONASE NAS SCH (08:26)
--- NOTE | 2017-03-12 10:15 | DISCHARGE SUMMARY ---
ADMISSION DATE: 03/09/2017 DISCHARGE DATE: FINAL DIAGNOSIS: 1. Acute exacerbation of chronic obstructive pulmonary disease. 2. Situational anxiety. 3. Osteoporosis. PRESENT ILLNESS: Mrs. Alatorre is a 76-year-old woman with known COPD and anxiety, who presented to the emergency room with severe shortness of breath. She had experienced shortness of breath off and on multiple occasions for approximately 2 months. During that time, she has had multiple courses of antibiotics and steroids and various adjustments in her bronchodilator inhalers. She has continued to have significant symptoms. She has not had fever, chills, or chest pain. PHYSICAL EXAMINATION: General Appearance: Revealed an anxious and tremulous, slender elderly female who was tachycardic and mildly short of breath at rest. HEENT: Unremarkable. Neck: Supple with no JVD, adenopathy, or thyromegaly. Cardiovascular examination: Unremarkable except for regular tachycardia. Pulmonary Examination: Breath sounds were distant with reduced air movement and very rare end-expiratory wheezes. She had no edema or clubbing. DATABASE: White blood count 9600, hemoglobin 14.3. Basic metabolic profile unremarkable. Chest x-ray chronic obstructive pulmonary disease with normal heart sounds. HOSPITAL COURSE: She is admitted to medical floor, on low-flow nasal oxygen, around the clock nebulizer treatments. She was seen in consultation by Dr. Marlon De Jesus, Hotel [employer]. He ordered pulmonary function testing, which showed fairly severe impairment with obstructive ventilatory defect, much worse than in 2009, but did show some response to bronchodilators. Please see his full consultation. He recommended decreasing her caffeine intake to help with the tachycardia and anxiety. He also fell adding a long acting beta agonist, so he changed her QVAR metered-dose inhaler to Symbicort. She was initially treated with intravenous steroids, but these were tapered to oral. Was treated with some amoxicillin but I feel she has had plenty of antibiotics and do not think she needs to continue this at home. She had nocturnal O2 saturation study which showed no significant desaturations. She is discharged in improved condition. She may need home oxygen therapy, but I have deferred this decision to Dr. De Jesus, who will see her later today. He will also arrange followup. She has a scheduled appointment in my office in 2 weeks. DISCHARGE MEDICATIONS: 1. Acetaminophen 650 mg p.r.n. for pain. 2. Tudorza inhaler 1 puff daily. 3. Albuterol HFA 1-2 puffs q.i.d. p.r.n. for shortness of breath. 4. Symbicort 160/4.5 inhaler, 2 puffs twice a day. 5. Caltrate 600 mg one twice a day. 6. Clorazepate 7.5 mg t.i.d. p.r.n. for anxiety or sleep. 7. Lexapro 10 mg daily with breakfast. 8. Fluticasone nasal spray b.i.d. as needed. 9. Folic acid 1 mg daily. 10. Multivitamin daily. 11. Prednisone 20 mg q.a.m. until recheck. 12. Trazodone 50 mg at bedtime. 13. Alendronate sodium 70 mg once weekly for osteoporosis. cc: MD Luis Borrego MD
== END 2017-03-12 12:55 | disposition home or self-care (01) ==
LOC: ED 07:49 → 3N 15:16
PROVIDERS: ADMIT Internal Medicine; ATTEND Internal Medicine